=== PATIENT | male | born 1940 | race Caucasian/White ===

== ENCOUNTER 2016-06-29 18:08 | Observation (INO) | payer OTHER ==
[~2016-06-29] VITALS: Ht 182.9 cm; Wt 94.3 kg
[2016-06-29] VITALS (17 sets, daily range): BP systolic 80–123; BP diastolic 54–80; PULSE 50–114; RESP 16–20; TEMP 98.3–98.6; O2SAT 95–100
[~2016-06-29 18:08] MED LIST: ORPH100T PO; TRAM50 PO
[2016-06-29] MEDS ORDERED: SODIUM CHLORIDE 0.9% FLUSH 10 ML FLUSH IVF PRN ×2 (18:30)
[2016-06-29] MEDS ORDERED: DILTIAZEM HCL 25 MG/5 ML VIAL IV PUSH ONE (18:30)
[2016-06-29] MEDS ORDERED: DILTIAZEM INJ 125 MG in SODIUM CHLORIDE 0.9% INJ 100 ML IV SCH (18:30)
--- NOTE | 2016-06-29 18:30 | PD ---
HPI Chief Complaint: Chest Pain Time Seen by Provider: 18:21 Travel History International Travel<30 days: No Contact w/Intl Traveler<30days: No Traveled to known affect area: No History of Present Illness HPI 76-year-old male with history of atrial fibrillation, hypertension, CAD status post stenting, diabetes, Arin Danlos Disease, presents to the ER today for several days history of general weakness. He also complains of chest discomfort which she currently rates it a 2 out of 10. He denies any shortness of breath, fevers, vomiting, black stools, diarrhea, or other symptoms. He states that he had been seen at an urgent care clinic today and was told to come in because of fast heart rate. Modifying Factors: None Associated Signs & Symptoms: General weakness, chest discomfort Risk Factors: A. fib history PFSH Past Medical History Cardiovascular Problems: Yes (stent, Afib) Congestive Heart Failure: Yes Diabetes: Yes Hypertension: Yes Respiratory: Yes (COPD) Past Surgical History Coronary Stent: Yes Social History Alcohol Use: No Tobacco Use: No Substance Use: No Allergies-Medications (Allergen,Severity, Reaction): Coded Allergies: No Known Allergies (Unverified , 06/29/16) Reported Meds & Prescriptions Reported Meds & Active Scripts Active Reported Methadone (Methadone HCl) 10 Mg Tab 20 Mg PO DAILY Lotensin (Benazepril HCl) 10 Mg Tab 5 Mg PO DAILY Flomax (Tamsulosin HCl) 0.4 Mg Cap 0.8 Mg PO HS Pravastatin 20 Mg Tab 20 Mg PO DAILY Atenolol 50 Mg Tab 50 Mg PO DAILY Review of Systems Except as stated in HPI: all other systems reviewed are Neg Physical Exam Narrative GENERAL: Well-developed elderly white male patient currently in mild distress. Awake and oriented 3. SKIN: Focused skin assessment warm/dry. HEAD: Atraumatic. Normocephalic. EYES: Pupils equal and round. No scleral icterus. No injection or drainage. ENT: No nasal bleeding or discharge. Mucous membranes pink and moist. NECK: Trachea midline. No JVD. Supple. CARDIOVASCULAR: Fast and irregularly irregular. No murmurs appreciated. RESPIRATORY: No accessory muscle use. Clear to auscultation. Breath sounds equal bilaterally. GASTROINTESTINAL: Abdomen soft, non-tender, nondistended. Hepatic and splenic margins not palpable. MUSCULOSKELETAL: No obvious deformities. No clubbing. No cyanosis. No edema. NEUROLOGICAL: Awake and alert. No obvious cranial nerve deficits. Motor grossly within normal limits. Normal speech. PSYCHIATRIC: Appropriate mood and affect; insight and judgment normal. Data Data Last Documented VS Vital Signs Date Time Temp Pulse Resp B/P Pulse Ox O2 Delivery O2 Flow Rate FiO2 06/29/16 18:44 80 16 123/77 06/29/16 18:43 98.6 100 Room Air Orders Ecg Monitoring (06/29/16 18:21) Blood Pressure (06/29/16 18:) Iv Access Insert/Monitor (06/29/16 18:21) Oximetry (06/29/16 18:21) Vital Signs (06/29/16 18:) Diltiazem Inj (Cardizem Inj) (06/29/16 18:30) Diltiazem Inj (Cardizem Inj) (06/29/16 18:30) Sodium Chloride 0.9% Flush (Ns Flush) (06/29/16 18:30) Electrocardiogram (06/29/16 18:21) Basic Metabolic Panel (Bmp) (06/29/16 18:21) Ckmb (Isoenzyme) Profile (06/29/16 18:21) Complete Blood Count With Diff (06/29/16 18:) Magnesium (Mg) (06/29/16 18:21) Prothrombin Time / Inr (Pt) (06/29/16 18:21) Act Partial Throm Time (Ptt) (06/29/16 18:21) Troponin I (06/29/16 18:21) Chest, Single Ap (06/29/16 18:21) Bilateral Bp Monitoring (06/29/16 18:21) Oxygen Administration (06/29/16 18:21) Sodium Chloride 0.9% Flush (Ns Flush) (06/29/16 18:30) MDM Medical Decision Making Medical Screen Exam Complete: Yes Emergency Medical Condition: Yes Medical Record Reviewed: Yes Interpretation(s) EKG shows A. fib with rapid ventricular response at a rate of 109 bpm. No signs of acute ST-T changes. Differential Diagnosis Chest discomfort, general weaknessdysrhythmias versus ACS versus metabolic issues versus pneumonia Narrative Course Initial EKG shows A. fib with rapid ventricular response. Cardizem was given for rate control. Lab work initiated in the ER. Physician Communication Physician Communication Case is signed out to Dr. Raza pending workup. Patient had been given Cardizem with improvement in heart rate to the 70s. Diagnosis Primary Impression: Atrial fibrillation with RVR Admitting Information Admitting Physician Requests: Admit Bhavesh French MD June 29, 2016 18:30
[2016-06-29] MEDS ORDERED: ATEN50TA PO (18:36)
[2016-06-29] MEDS ORDERED: PRAV20TA2 PO (18:36)
[2016-06-29] MEDS ORDERED: METH10TA PO (18:37)
[2016-06-29] MEDS ORDERED: TAMS5CAP PO (18:37)
[2016-06-29] MEDS ORDERED: LOTE10TA13 PO (18:37)
[2016-06-29 18:52] LABS: AUTOMATED NEUTROPHIL # 5.9 TH/MM3 (1.8-7.7); BASOPHIL # 0.3 TH/MM3 (0-0.2); EOSINOPHIL # 0.2 TH/MM3 (0-0.4); EOSINOPHIL % 2.4 % (0.0-4.0); HEMATOCRIT 45.5 % (39.0-51.0); LYMPH % 21.6 % (9.0-44.0); LYMPHOCYTE # 1.9 TH/MM3 (1.0-4.8); MEAN CELL VOLUME 89.5 FL (80.0-100.0); MEAN CORPUSCULAR HGB CONC 33.5 % (32.0-36.0); MONO % 8.2 % (0.0-8.0); NEUT % 64.8 % (16.0-70.0); PLATELET COUNT 228 TH/MM3 (150-450); RED BLOOD COUNT 5.08 MIL/MM3 (4.50-5.90); RED CELL DISTRIBUTION WIDTH 12.3 % (11.6-17.2)
[2016-06-29 19:03] LABS: HEMO FLAGS DIFF FINAL
--- NOTE | 2016-06-29 19:11 | RADHPO ---
EXAM DATE/TIME: 06/29/2016 18:47 [facility] COMPARISON: No previous studies available for comparison. INDICATIONS : Patient states rapid heart rate today. No other complaints. MEDICAL HISTORY : None. SURGICAL HISTORY : Carotid stent. ENCOUNTER: Initial ACUITY: 1 day PAIN SCORE: 0/10 LOCATION: Bilateral chest FINDINGS: A single view of the chest demonstrates the lungs to be symmetrically aerated without evidence of mas s, infiltrate or effusion. The cardiomediastinal contours are unremarkable. Osseous structures are intact. CONCLUSION: No acute disease. Lamont Neumann MD on June 29, 2016 at 19:08 Board Certified Radiologist. This report was verified electronically.
[2016-06-29 19:26] LABS: CHLORIDE 108 MEQ/L (98-107); POTASSIUM 3.9 MEQ/L (3.5-5.1); SODIUM (NA) 143 MEQ/L (136-145)
[2016-06-29 19:30] LABS: ANION GAP 9 MEQ/L (5-15); BICARBONATE 26.2 MEQ/L (21.0-32.0); BLOOD UREA NITROGEN 26 MG/DL (7-18); MAGNESIUM 2.3 MG/DL (1.5-2.5)
[2016-06-29 19:32] LABS: APTT (PATIENT) 25.7 SEC (24.3-30.1); PROTHROMBIN TIME - PATIENT 10.9 SEC (9.8-11.6)
[2016-06-29 19:33] LABS: GLOMERULAR FILTRATION RATE 65 ML/MIN (>89)
[2016-06-29 19:41] LABS: CREATINE KINASE 61 U/L (39-308)
--- NOTE | 2016-06-29 21:24 | PD ---
Physical Exam Time Seen by Provider: 21:[address] Franco left this patient with me to check the laboratory and make a disposition. Data Data Last Documented VS Vital Signs Date Time Temp Pulse Resp B/P Pulse Ox O2 Delivery O2 Flow Rate FiO2 06/29/16 19:14 84 20 96 Room Air 06/29/16 19:10 86/61 06/29/16 18:43 98.6 Orders Ecg Monitoring (06/29/16 18:) Blood Pressure (06/29/16 18:) Iv Access Insert/Monitor (06/29/16 18:) Oximetry (06/29/16 18:) Vital Signs (06/29/16 18:) Diltiazem Inj (Cardizem Inj) (06/29/16:30) Diltiazem Inj (Cardizem Inj) (06/29/16) Sodium Chloride 0.9% Flush (Ns Flush) (06/29/16 18:) Electrocardiogram (06/29/16 18:21) Basic Metabolic Panel (Bmp) (06/29/16 18:) Ckmb (Isoenzyme) Profile (06/29/16 18:21) Complete Blood Count With Diff (06/29/16:) Magnesium (Mg) (06/29/16 18:) Prothrombin Time / Inr (Pt) (06/29/16:) Act Partial Throm Time (Ptt) (06/29/16 18:) Troponin I (06/29/16 18:) Chest, Single Ap (06/29/16 18:) Bilateral Bp Monitoring (06/29/16 18:) Oxygen Administration (06/29/16:) Sodium Chloride 0.9% Flush (Ns Flush) (06/29/16 18:30) Labs Laboratory Tests Test 06/29/16:30 White Blood Count 9.0 TH/MM3 Red Blood Count 5.08 MIL/MM3 Hemoglobin 15.2 GM/DL Hematocrit 45.5 % Mean Corpuscular Volume 89.5 FL Mean Corpuscular Hemoglobin 30.0 PG Mean Corpuscular Hemoglobin 33.5 % Concent Red Cell Distribution Width 12.3 % Platelet Count 228 TH/MM3 Mean Platelet Volume 8.3 FL Neutrophils (%) (Auto) 64.8 % Lymphocytes (%) (Auto) 21.6 % Monocytes (%) (Auto) 8.2 % Eosinophils (%) (Auto) 2.4 % Basophils (%) (Auto) 3.0 % Neutrophils # (Auto) 5.9 TH/MM3 Lymphocytes # (Auto) 1.9 TH/MM3 Monocytes # (Auto) 0.7 TH/MM3 Eosinophils # (Auto) 0.2 TH/MM3 Basophils # (Auto) 0.3 TH/MM3 CBC Comment DIFF FINAL Differential Comment Prothrombin Time 10.9 SEC Prothromb Time International 1.0 RATIO Ratio Activated Partial 25.7 SEC Thromboplast Time Sodium Level 143 MEQ/L Potassium Level 3.9 MEQ/L Chloride Level 108 MEQ/L Carbon Dioxide Level 26.2 MEQ/L Anion Gap 9 MEQ/L Blood Urea Nitrogen 26 MG/DL Creatinine 1.10 MG/DL Estimat Glomerular Filtration 65 ML/MIN Rate Random Glucose 156 MG/DL Calcium Level 9.0 MG/DL Magnesium Level 2.3 MG/DL Total Creatine Kinase 61 U/L Troponin I LESS THAN 0.02 NG/ML [facility] Medical Record Reviewed: Yes Supervised Visit with ABIDA: Yes Interpretation(s) The CBC is normal. The rhythm strip shows atrial flutter with a rate of 64 and occasional PVCs. The ventricular rate is regular. The basic metabolic profile shows a BUN of 26, GFR of 65, glucose 156 but is otherwise normal. The magnesium is normal and the cardiac enzymes are normal. The coagulation profile is normal. Differential Diagnosis Acute coronary syndrome, A. fib with RVR, pneumonia, hypo-/hyperglycemia, electrolyte disorder, renal insufficiency Narrative Course The patient has atrial fibrillation with rapid ventricular response. When Dr. Franco gave him a Cardizem bolus his blood pressure dropped to the 60s systolic. The heart rate went down to the 60s/70s with atrial flutter/fib. It remains at 64 at this time. The patient states that the last time he had this problem he had a pericarditis and they treated him with Motrin. He said they admitted him to the hospital and put him on anticoagulants. Diagnosis Primary Impression: Atrial fibrillation with RVR Additional Impression: Atrial flutter by electrocardiogram Admitting Information Admitting Physician Requests: Observation Elias Raza MD June 29, 2016 21:24
[2016-06-29] MEDS ORDERED: SODIUM CHLORIDE 0.9% FLUSH 10 ML FLUSH IV FLUSH PRN (21:30)
[2016-06-29] MEDS ORDERED: NALOXONE HCL 0.4 MG/ML AMP IV PRN (21:30)
[2016-06-29] MEDS ORDERED: SODIUM CHLOR 0.9% 1000 ML INJ 1,000 ML IV SCH (21:30)
--- NOTE | 2016-06-29 22:16 | RADHPO ---
EXAM DATE/TIME: 06/29/2016 21:52 [facility] COMPARISON: CHEST SINGLE AP, June 29, 2016, 18:47. INDICATIONS : Patient states rapid heart rate today. No other complaints. MEDICAL HISTORY : SURGICAL HISTORY : Carotid stent. ENCOUNTER: Initial ACUITY: 1 day PAIN SCORE: 0/10 LOCATION: Bilateral chest FINDINGS: PA and lateral views of the chest demonstrate the lungs to be symmetrically aerated without evidence of mass, infiltrate or effusion. The cardiomediastinal contours are unremarkable. Osseous structure s are intact. CONCLUSION: No acute disease. Lamont Neumann MD on June 29, 2016 at 22:14 Board Certified Radiologist. This report was verified electronically.
[2016-06-30] MEDS ORDERED: ZANT150T2 PO (00:04)
[2016-06-30] MEDS ORDERED: PRIL20CA9 PO (00:04)
[2016-06-30 00:57] VITALS: BP 118/82; PULSE 74
[2016-06-30] MEDS: FAMOTIDINE 20 MG TAB PO SCH ×2 (00:57→09:27)
[2016-06-30] MEDS: PANTOPRAZOLE SOD 20 MG DELAYED RELEASE TAB PO SCH ×2 (00:57→09:27)
[2016-06-30 01:17] LABS: CREATINE KINASE 44 U/L (39-308)
[2016-06-30] MEDS ORDERED: ACETAMINOPHEN/HYDROcodone 325 MG/5 MG TAB PO ONE (01:45)
[2016-06-30 04:00] VITALS: BP 100/61; PULSE 78; RESP 18; TEMP 96.1; O2SAT 95
--- NOTE | 2016-06-30 06:40 | EKG ---
Date Performed: 06/29/2016 Time Performed: 18:09:30 PTAGE: 76 years EKG: Atrial flutter with rapid ventricular response. Abnormal ECG NO PREVIOUS TRACING DOCTOR: Helder Delgado Interpretating Date/Time 06/30/2016 06:40:02
[2016-06-30 06:42] LABS: AUTOMATED NEUTROPHIL # 4.7 TH/MM3 (1.8-7.7); BASOPHIL % 0.5 % (0.0-2.0); EOSINOPHIL # 0.3 TH/MM3 (0-0.4); EOSINOPHIL % 3.9 % (0.0-4.0); HEMATOCRIT 36.7 % (39.0-51.0); HEMO FLAGS DIFF FINAL; LYMPHOCYTE # 2.3 TH/MM3 (1.0-4.8); MEAN CELL VOLUME 88.8 FL (80.0-100.0); MEAN CORPUSCULAR HGB CONC 34.9 % (32.0-36.0); MONO % 9.2 % (0.0-8.0); NEUT % 57.4 % (16.0-70.0); PLATELET COUNT 157 TH/MM3 (150-450); RED BLOOD COUNT 4.13 MIL/MM3 (4.50-5.90); RED CELL DISTRIBUTION WIDTH 12.4 % (11.6-17.2)
[2016-06-30 06:49] LABS: CHLORIDE 112 MEQ/L (98-107); POTASSIUM 3.7 MEQ/L (3.5-5.1); SODIUM (NA) 146 MEQ/L (136-145)
[2016-06-30 07:06] LABS: ANION GAP 8 MEQ/L (5-15); BICARBONATE 25.9 MEQ/L (21.0-32.0); BLOOD UREA NITROGEN 19 MG/DL (7-18); CREATINE KINASE 43 U/L (39-308); GLOMERULAR FILTRATION RATE 89 ML/MIN (>89)
--- NOTE | 2016-06-30 08:18 | EKG ---
Date Performed: 06/30/2016 Time Performed: 06:12:10 PTAGE: 76 years EKG: Atrial flutter Inferior T wave changes are nonspecific Abnormal ECG NO SIGNIFICANT CHANGE F ROM PRIOR ELECTROCARDIOGRAM. PREVIOUS TRACING : 06/30/2016 00.14 DOCTOR: Helder Delgado Interpretating Date/Time 06/30/2016 08:18:34
--- NOTE | 2016-06-30 08:22 | EKG ---
Date Performed: 06/30/2016 Time Performed: 00:14:48 PTAGE: 76 years EKG: Atrial flutter Inferior T wave changes are nonspecific Low QRS voltages in limb leads Abnor mal ECG NO SIGNIFICANT CHANGE FROM PRIOR ELECTROCARDIOGRAM. PREVIOUS TRACING : 06/29/2016 21.31 DOCTOR: Helder Delgado Interpretating Date/Time 06/30/2016 08:20:35
--- NOTE | 2016-06-30 08:23 | EKG ---
Date Performed: 06/29/2016 Time Performed: 21:31:16 PTAGE: 76 years EKG: Regular supraventricular rhythm. Inferior T wave changes are nonspecific Borderline ECG NO SIGNIFICANT CHANGE FROM PRIOR ELECTROCARDIOGRAM. PREVIOUS TRACING : 06/29/2016 18.09 DOCTOR: Helder Delgado Interpretating Date/Time 06/30/2016 08:21:22
[2016-06-30 08:38] VITALS: BP 104/76; PULSE 92; RESP 16; TEMP 96.6; O2SAT 99
--- NOTE | 2016-06-30 08:48 | HHI.HP ---
[facility] No Primary Care Physician Admission Diagnosis atrial fibrillation with RVR Diagnoses: Chief Complaint: Weakness Travel History International Travel<30 Days: No Contact w/Intl Traveler <30 Da: No Traveled to Known Affected Are: No History of Present Illness 76-year-old male with self-reported history of coronary artery disease status post stent 20 years ago, diet-controlled diabetes, paroxysmal atrial fibrillation, hypertension, hyperlipidemia, chronic neck pain who presented to the emergency room with complaint of generalized weakness. The patient also complained of heart palpitations. He reports he had diarrhea for the past couple of days which have since resolved. He was seen at an urgent care clinic and was told to go to the emergency room because of fast heart rate. He reports that he has run out of some of his medication since he moved here from [place]. The patient was found to be in A. fib with uncontrolled rate in the emergency room. He was given a dose of Cardizem and his heart rate normalized. Regarding atrial fibrillation, he reports he has been on Eliquis in the past. It is not clear why it was discontinued but I suspect it was probably lost to follow-up due to the move. He reports he is feeling back to himself since he received IV fluid and the Cardizem in the emergency room. Review of Systems Constitutional: DENIES: Fever, Weight loss, Chills Cardiovascular: COMPLAINS OF: Palpitations Musculoskeletal: COMPLAINS OF: Joint pain, Neck pain Except as stated in HPI: all other systems reviewed are Neg Past Family Social History Past Medical History coronary artery disease status post stent 20 years ago, diet-controlled diabetes , paroxysmal atrial fibrillation, hypertension, hyperlipidemia, chronic neck pain Oropharyngeal cancer status post resection and radiation therapy. Past Surgical History Oropharyngeal cancer resection Reported Medications Reported Meds & Active Scripts Active Reported Zantac (Ranitidine HCl) 150 Mg Tab 150 Mg PO BID Prilosec (Omeprazole) 20 Mg Cap 20 Mg PO BID Methadone (Methadone HCl) 10 Mg Tab 20 Mg PO BID Lotensin (Benazepril HCl) 10 Mg Tab 5 Mg PO DAILY Flomax (Tamsulosin HCl) 0.4 Mg Cap 0.8 Mg PO HS Pravastatin 20 Mg Tab 20 Mg PO DAILY Atenolol 50 Mg Tab 50 Mg PO DAILY Allergies: Coded Allergies: No Known Allergies (Unverified , 06/29/16) Family History Reviewed and noncontributory. Social History Patient denies tobacco, alcohol, or illicit drug use. Physical Exam Vital Signs Vital Signs Date Time Temp Pulse Resp B/P Pulse Ox O2 Delivery O2 Flow Rate FiO2 06/30/16 08:38 96.6 92 16 104/76 99 06/30/16 04:00 96.1 78 18 100/61 95 06/30/16 02:50 18 06/30/16 00:57 74 118/82 06/29/16 23:26 73 06/29/16 23:00 85 06/29/16 22:30 82 20 110/74 98 06/29/16 22:00 74 20 116/71 97 06/29/16 21:30 79 20 106/68 96 06/29/16 20:55 51 20 92/66 97 06/29/16 20:25 52 20 99/70 97 06/29/16 19:55 50 18 101/63 96 06/29/16 19:26 56 20 93/65 95 06/29/16 19:14 84 20 96 Room Air 06/29/16 19:10 70 20 86/61 96 Room Air 06/29/16 19:05 72 20 80/54 06/29/16 18:50 86 20 106/80 95 06/29/16 18:44 80 16 123/77 06/29/16 18:43 98.6 80 16 123/77 100 Room Air 06/29/16 18:40 100 Room Air 06/29/16 18:40 100 Room Air 06/29/16 18:38 80 16 123/77 99 Room Air 100/73 06/29/16 18:16 119 10 100 Room Air 06/29/16 18:12 98.3 114 16 98 Physical Exam GENERAL: This is a well-nourished, well-developed patient, in no apparent distress. SKIN: No rashes, ecchymoses or lesions. Cool and dry. HEAD: Atraumatic. Normocephalic. No temporal or scalp tenderness. EYES: Pupils equal round and reactive. Extraocular motions intact. No scleral icterus. No injection or drainage. ENT: Nose without bleeding, purulent drainage or septal hematoma. Throat without erythema, tonsillar hypertrophy or exudate. Uvula midline. Airway patent. NECK: Trachea midline. No JVD or lymphadenopathy. Supple, nontender, no meningeal signs. CARDIOVASCULAR: Rate in the 90s, irregular rhythm. No murmurs or rubs. RESPIRATORY: Clear to auscultation. Breath sounds equal bilaterally. No wheezes , rales, or rhonchi. GASTROINTESTINAL: Abdomen soft, non-tender, nondistended. No hepato-splenomegaly , or palpable masses. No guarding. MUSCULOSKELETAL: Extremities without clubbing, cyanosis, or edema. No joint tenderness, effusion, or edema noted. No calf tenderness. Negative Homans sign bilaterally. NEUROLOGICAL: Awake and alert. Cranial nerves II through XII intact. Motor and sensory grossly within normal limits. Five out of 5 muscle strength in all muscle groups. Normal speech. Laboratory Laboratory Tests Test 06/29/16 06/30/16 06/30/16 18:30 00:35 05:55 White Blood Count 9.0 8.0 Red Blood Count 5.08 4.13 Hemoglobin 15.2 12.8 Hematocrit 45.5 36.7 Mean Corpuscular Volume 89.5 88.8 Mean Corpuscular Hemoglobin 30.0 31.0 Mean Corpuscular Hemoglobin 33.5 34.9 Concent Red Cell Distribution Width 12.3 12.4 Platelet Count 228 157 Mean Platelet Volume 8.3 8.1 Neutrophils (%) (Auto) 64.8 57.4 Lymphocytes (%) (Auto) 21.6 29.0 Monocytes (%) (Auto) 8.2 9.2 Eosinophils (%) (Auto) 2.4 3.9 Basophils (%) (Auto) 3.0 0.5 Neutrophils # (Auto) 5.9 4.7 Lymphocytes # (Auto) 1.9 2.3 Monocytes # (Auto) 0.7 0.7 Eosinophils # (Auto) 0.2 0.3 Basophils # (Auto) 0.3 0.0 CBC Comment DIFF FINAL DIFF FINAL Differential Comment Prothrombin Time 10.9 Prothromb Time International 1.0 Ratio Activated Partial 25.7 Thromboplast Time Sodium Level 143 146 Potassium Level 3.9 3.7 Chloride Level 108 112 Carbon Dioxide Level 26.2 25.9 Anion Gap 9 8 Blood Urea Nitrogen 26 19 Creatinine 1.10 0.84 Estimat Glomerular Filtration 65 89 Rate Random Glucose 156 93 Calcium Level 9.0 7.9 Magnesium Level 2.3 Total Creatine Kinase 61 44 43 Troponin I LESS THAN 0.02 LESS THAN 0.02 LESS THAN 0.02 B-Type Natriuretic Peptide 101 Result Diagram: 06/30/1655 06/30/1655 Imaging Last Impressions Chest X-Ray 06/29/162127 Signed Impressions: Service Date/Time: June 21:52 - CONCLUSION: No acute disease. Lamont Neumann MD Assessment and Plan Problem List: (1) Atrial fibrillation with RVR ICD Code: I48.91 Status: Acute Assessment and Plan 76-year-old male admitted with atrial fibrillation with RVR. Patient is status post IV fluid and a dose of Cardizem. His rate is better controlled. He is back to baseline. - We'll increase atenolol to 100 mg daily. - He has been on Eliquis in the past. Will resume this medication. We discussed risk and benefit. - He was advised to establish with a local PCP and community outreach worker The patient can continue his home medications for his other chronic conditions on discharge. Patient is discharged in stable condition Follow up with: PCP within a week. He was advised to assess for referral to cardiology. Activity: Regular as tolerated Diet: Heart healthy/diabetic Meds: Per medication reconciliation Pualo Serrano MD June 30, 2016 08:48
[2016-06-30] MEDS ORDERED: NON-FORMULARY DRUG (Omeprazole (Prilosec) 20 MG) PO SCH (09:00)
[2016-06-30] MEDS ORDERED: SODIUM CHLORIDE 0.9% FLUSH 10 ML FLUSH IV FLUSH SCH (09:00)
[2016-06-30] MEDS ORDERED: NON-FORMULARY DRUG (Ranitidine (Zantac) 150 MG) PO SCH (09:00)
[2016-06-30] MEDS ORDERED: METHADONE HCL 10 MG TAB PO SCH (10:00)
[2016-06-30] MEDS ORDERED: ATENOLOL 50 MG TAB PO SCH (10:00)
[2016-06-30] MEDS ORDERED: APIX5TAB PO (11:46)
[2016-06-30] MEDS ORDERED: ATEN100T PO (11:46)
--- NOTE | 2016-06-30 11:51 | HHI.DCPOC ---
Discharge Care Plan Diagnosis: (1) Atrial fibrillation with RVR Goals to Promote Your Health * To prevent worsening of your condition and complications * To maintain your health at the optimal level Directions to Meet Your Goals Take your medications as prescribed Follow your dietary instruction Follow activity as directed Keep your appointments as scheduled Take your immunizations and boosters as scheduled If your symptoms worsen call your PCP, if no PCP go to Urgent Care Center or Emergency Room Smoking is Dangerous to Your Health. Avoid second hand smoke Call the 24-hour hour crisis hotline for domestic abuse at Paulo Serrano MD June 30, 2016 11:51
[2016-06-30] MEDS ORDERED: TAMSULOSIN HCL 0.4 MG CAP PO SCH (21:00)
[2016-07-01] MEDS ORDERED: ATENOLOL 50 MG TAB PO SCH (09:00)
[2016-07-01] MEDS ORDERED: PRAVASTATIN SOD 20 MG TAB PO SCH (09:00)
[2016-07-01] MEDS ORDERED: LISINOPRIL 5 MG TAB PO SCH (09:00)
== END 2016-06-30 12:48 | disposition home or self-care (01) ==
LOC: PHED 18:08 → PHEDA 21:26 → PH3B 22:35
PROVIDERS: ADMIT Family Medicine; ATTEND Family Medicine
DX: I48.0 Paroxysmal atrial fibrillation (principal); I25.10 Atherosclerotic heart disease of native coronary artery without angina pectoris; I11.0 Hypertensive heart disease with heart failure; I50.9 Heart failure, unspecified; E78.5 Hyperlipidemia, unspecified; J44.9 Chronic obstructive pulmonary disease, unspecified; E11.9 Type 2 diabetes mellitus without complications; Q79.6 Ehlers-Danlos syndromes; G89.29 Other chronic pain; M54.2 Cervicalgia; Z95.5 Presence of coronary angioplasty implant and graft; Z85.818 Personal history of malignant neoplasm of other sites of lip, oral cavity, and pharynx
CPT/HCPCS: 71010; 71020; 80048; 82550; 83735; 83880; 84484; 85025; 85610; 85730; 93005; 96374; 99285; G0378; J7030